=== PATIENT | female | born 1990 | race Caucasian/White ===

== ENCOUNTER 2023-03-18 16:22 | Emergency (ER) | payer OTHER ==
[~2023-03-18] VITALS: Ht 162.6 cm; Wt 88.9 kg
== END 2023-03-18 20:59 | disposition home or self-care (01) ==
LOC: ER 16:22
DX: M94.0 Chondrocostal junction syndrome [Tietze] (principal); G44.89 Other headache syndrome; Z88.0 Allergy status to penicillin